=== PATIENT | male | born 1960 | race Two or more races ===

== ENCOUNTER 2020-01-01 06:00 | Day surgery (SDC) | payer OTHER | END 2020-01-01 11:05 | disposition home or self-care (01) | LOC: AMB-ENDOS 06:00 | DX: D12.2 Benign neoplasm of ascending colon (principal); D17.5 Benign lipomatous neoplasm of intra-abdominal organs; K63.5 Polyp of colon; K64.1 Second degree hemorrhoids ==

== ENCOUNTER 2022-04-16 11:51 | Outpatient (CLI) | payer OTHER | END 2022-04-16 11:52 | disposition home or self-care (01) | LOC: LAB 11:51 | DX: C61 Malignant neoplasm of prostate (principal); E78.5 Hyperlipidemia, unspecified; I11.9 Hypertensive heart disease without heart failure; I25.10 Atherosclerotic heart disease of native coronary artery without angina pectoris ==

== ENCOUNTER 2022-12-10 09:33 | Outpatient (CLI) | payer OTHER | END 2022-12-10 09:37 | disposition home or self-care (01) | LOC: LAB 09:33 | DX: E03.9 Hypothyroidism, unspecified (principal); E11.9 Type 2 diabetes mellitus without complications; N39.0 Urinary tract infection, site not specified; F33.1 Major depressive disorder, recurrent, moderate; F51.01 Primary insomnia ==